=== PATIENT | male | born 1965 | race Caucasian/White ===

== ENCOUNTER → 2022-01-13 10:45 | Outpatient (CLI) | payer BC, SELFPAY | PROVIDERS: Visit Provider Nurse Practitioner | DX: U07.1 COVID-19 (principal) | CPT/HCPCS: C9803; U0003; U0005 ==

== ENCOUNTER 2025-05-05 20:45 | Emergency (ER) | payer OTHER, SELFPAY ==
[2025-05-05 20:52] VITALS: BP 155/83; PULSE 97; RESP 18; TEMP 36.6; O2SAT 96; BMI 27.5
--- NOTE | 2025-05-05 21:09 | ED_ITS ---
<Statement entered by Felix Espana MD - 05/05/25 23:37> I was consulted by the LEANDRO, and we discussed the complexity of the problems being addressed. I approved the treatment and management plan for this patient's care in the emergency department, thus performing a substantive portion of the medical decision making. Felix Espana MD Discharge Plan Disposition Patient Disposition: Home, Self-Care Condition: Good Prescriptions Prescriptions: New cephalexin 500 mg capsule 500 mg PO BID 7 Days Qty: 14 0RF No Action metformin 1,000 mg tablet PO Patient Comments: TAKE 1 TABLET BY MOUTH TWICE A DAY WITH BREAKFAST AND DINNER Ozempic 0.25 mg or 0.5 mg (2 mg/3 mL) pen injector SQ Patient Comments: Inject 0.5 mg every week by subcutaneous route. amlodipine 5 mg tablet PO Patient Comments: TAKE 1 TABLET BY MOUTH EVERY DAY irbesartan 150 mg tablet PO Patient Comments: TAKE ONE TABLET BY MOUTH EVERY DAY Jardiance 25 mg tablet PO Patient Comments: TAKE 1 TABLET BY MOUTH EVERY MORNING metoprolol succinate 100 mg tablet extended release 24 hr PO Patient Comments: TAKE 1 TABLET BY MOUTH TWICE A DAY atorvastatin 80 MG tablet 80 mg PO HS fenofibrate micronized 200 MG capsule 160 mg PO DAILY Patient Comments: TAKE 1 CAPSULE BY MOUTH EVERYDAY AT BEDTIME Referrals Follow up/Referrals: Ciara Amaya [Primary Care Provider, Medical] - See instructions Activity Restrictions/Add. Instructions Additional Instructions/Restrictions: May wash with soap and water keep dry clean dry nonocclusive dressing. Stitches need to come out in 7 days. If you have increasing redness pain swelling returns emergency department. I did send antibiotic to your pharmacy. Please take it once gone. Clinical Impressions Clinical Impression: Laceration of hand, left Qualifiers: Encounter type: initial encounter Foreign body presence: without foreign body Qualified Code(s): S61.412A - Laceration without foreign body of left hand, initial encounter Instructions Patient Instructions: DI for Laceration Repair Print Language Print Language: Citizen Of [place] Discharge ED Provider: Felix Espana General Adult HPI General Chief complaint: Wound/Laceration Stated complaint: AO 05/05/25 laceration in between R index & middle Time Seen by Provider: 05/05/25 21:04 Mode of Arrival: Ambulatory Source of Information: Patient Description of Symptoms (Recalled from ER Triage Doc. by RN): pt presents for evaluation of a laceration to his left hand. Pt states his son was handing a piece of tin roof down to him. T-dap is UTD. History of Present Illness HPI narrative: Patient presents for evaluation of a left hand laceration. Patient was trying to catch a piece of fresh 10 and it slipped impacting edge in between his 2nd and 3rd digits of his left hand. He has full range of motion is neurovascular intact distally and suffered no other injury. Related Data Home Medications ?Medication ?Instructions ?Recorded ?Confirmed atorvastatin 80 mg tablet 80 mg PO HS Cholesterol 08/0102/24/24 fenofibrate micronized 200 mg 160 mg PO DAILY Choleste rol 08/16/19 02/24/24 capsule amlodipine 5 mg tablet mg PO 02/24/24 02/24/24 empagliflozin 25 mg tablet mg PO 02/24/24 02/24/24 (Jardiance) irbesartan 150 mg tablet mg PO 02/24/24 02/24/24 metformin 1,000 mg tablet mg PO 02/24/24 02/24/24 metoprolol succinate 100 mg mg PO 02/24/24 02/24/24 tablet,extended release 24 hr semaglutide 0.25 mg or 0.5 mg (2 mg SQ 02/24/24 mg/3 mL) subcutaneous pen injector (Ozempic) Previous Rx's ?Medication ?Instructions ?Recorded cephalexin 500 mg capsule 500 mg PO BID 7 days #14 cap s 05/05/25 Allergies Allergy/AdvReac Type Severity Reaction Status Date / Time Esteves powder Allergy Severe Swelling Uncoded 02/24/24 13:35 of Lip/Tongue/Throat [facility] Disclaimer: The information contained in this section may have been updated after the patient was seen, as this information can be updated by other users. Medical History (Updated 05/05/25 @ 22:11 by BALDEMAR Cervantes) High cholesterol Hypertension H/O nephrolithotomy with removal of calculi Diabetes mellitus type 2, controlled Surgical History (Updated 02/24/24 @ 13:47 by Sarah Dbuon MA) H/O colonoscopy with polypectomy Hx of appendectomy Family History (Updated 02/24/24 @ 13:44 by Sarah Dubon MA) Father Blockage of coronary artery of heart Mother Diabetes Social History (Updated 02/24/24 @ 13:46 by Sarah Dubon MA) Smoking Status: Never smoker alcohol intake: never substance use type: denies use current occupational status: retired Travel in the last 8 weeks?: None housing: house Have you lived/traveled outside [place] in past 30 days?: No Contact w/someone who lives/traveled outside [place] past 30 days?: No Exposure to someone with infectious disease in past 14 days?: No Do you have a fever (greater than 100.4 F or 38 C)?: No Have you tested positive for COVID-19?: No Exposed to someone with COVID-19 in past 14 days?: No Do you have a sore throat?: No Do you have a cough?: No Do you have any weakness?: No Do you have any diarrhea?: No Are you experiencing any unusual bleeding?: No Do you have any muscle aches/pain?: No Do you have any abdominal pain?: No Are you experiencing loss of taste or smell?: No Other Medical History Have you received the Flu Vaccine for this season: Yes Have you received the Pneumonia Vaccine: Yes ROS Obtained: Yes Systems reviewed as appropriate & no additional complaints except as documented Physical Exam General General appearance: alert and in no apparent distress Respiratory Respiratory exam: Present normal lung sounds bilaterally Cardiovascular Cardiovascular exam: Present regular rate Neurological Exam Neurological exam: Present alert and oriented X3 Medical Decision Making Medical Records Screening: Per USPSTF and CDC recommendations, given the prevalence of disease in our region, it is our hospital?s policy to screen for HIV and viral Hepatitis for all patients aged 18 and over and those with ongoing risk factors. Dequan Inquiry Pt receiving controlled substance: No Vital Signs: 05/05/25 20:52 05/05/25 21:11 05/05/25 21:30 Temperature 97.9 F Temperature Source Oral Pulse Rate 91 H 85 Pulse Rate [Right] 97 H Respiratory Rate 18 12 11 L Blood Pressure 146/88 H 143/78 H Blood Pressure [Right Arm] 155/83 H Blood Pressure Mean [Right Arm] 107 Blood Pressure Source [Right Arm] Manual Cuff/ Auscultation Blood Pressure Position Sitting 02 Sat by Pulse Oximetry 96 99 100 Oxygen Delivery Method Room Air Room Air Orders (Tests/Meds): ED MEDICATIONS Discontinued Medications Generic Name Dose Route Start Last Admin Trade Name Freq PRN Reason Stop Dose Admin Cephalexin HCl 500 mg 05/05/25 21:10 05/05/25 21:26 Cephalexin 500mg Capsule PO 05/05/25 21:11 500 mg ONCE ONE Administration Lidocaine/Epinephrine 10 ml 05/05/25 21:10 05/05/25 21:26 Lidocaine 1% W/Epi 1:100,000 20ml Vial SQ 05/05/25 21:11 10 ml ONCE ONE Administration ORDERS Category Date Time Status Hand XR left minimum 3 views [XR hand LT min 3V] Stat Exams 05/05/25 21:10 Completed Medical Decision Narrative: In summary patient is a 59-year-old male who presents to the emergency department for evaluation of left hand laceration. Patient is hemodynamically stable upon arrival, afebrile. Physical exam is remarkable for laceration to the interdigital space between the 2nd and 3rd digits of his left hand. He is neurovascularly intact has full range of motion no palpable bony deformity. Differential diagnosis includes superficial laceration versus possible joint involvement or fracture. Initial workup will be conducted with plain film x- rays. Initial interventions include tetanus is up-to-date so Keflex only for now. Initial workup reviewed by me shows no acute bony abnormality prior to radiology read via my informal interpretation of his plain film x-ray. Wound was then cleaned and anesthetized and wound is superficial does not involve the joint spaces. Wound was then closed primarily with 7 4 point 0 nylon sutures in interrupted fashion. Patient is appropriate discharged with prescription for Keflex with first dose given here and strict return precautions. Procedures Laceration Laceration 1: Site: hand Side (If applicable): left Size (cm): 3 Description: linear Depth: simple, single layer Local Anesthetic: lidocaine 1% and with epi Amount of anesthesia used (mL): 10 Pre-repair: wound explored, irrigated extensively and deep structures intact Skin layer closed with: nylon Size (cm): 4-0 Number of sutures: 7 Technique: simple, interrupted Critical Care Critical Care Time Critical Care Time: No
--- NOTE | 2025-05-05 21:10 | XR_ITS ---
PROCEDURE INFORMATION: Exam: XR Left Hand Exam date and time: 05/05/2025 9:13 PM Age: 59 years old Clinical indication: Injury or trauma; Other: Cut on a piece of tin roof; Laceration; Hand; Left; Additional info: Trauma to the 2nd interdigital space w/ laceration TECHNIQUE: Imaging protocol: Radiologic exam of the left hand. Views: 3 or more views. COMPARISON: No relevant prior studies available. FINDINGS: Bones/joints: No fracture. Normal alignment. Soft tissues: Unremarkable. IMPRESSION: No acute findings.
[2025-05-05 21:11] VITALS: BP 146/88; PULSE 91; RESP 12; O2SAT 99
[2025-05-05] MEDS: cephALEXin 500MG CAPSULE 500 MG PO (21:26)
[2025-05-05] MEDS: LIDOCAINE 1% W/EPI 1:100,000 20ML VIAL 10 ML SQ (21:26)
[2025-05-05 21:30] VITALS: BP 143/78; PULSE 85; RESP 11; O2SAT 100
[2025-05-05 22:15] VITALS: BP 145/90; PULSE 84; RESP 16; TEMP 37; O2SAT 95
== END 2025-05-05 22:20 | disposition home or self-care (01) ==
PROVIDERS: Emergency Provider Emergency Medicine; PCP Nurse Practitioner Family
DX: S61.412A Laceration without foreign body of left hand, initial encounter (principal); W26.8XXA Contact with other sharp object(s), not elsewhere classified, initial encounter
CPT/HCPCS: 12002; 73130; 99283; J2004